=== PATIENT | female | born 1950 | race Caucasian/White ===

== ENCOUNTER → 2016-11-06 | Outpatient (CLI) | payer MEDICARE, OTHER | LOC: SUN.DIA 08:18 | DX: E11.65 Type 2 diabetes mellitus with hyperglycemia (principal); Z71.3 Dietary counseling and surveillance | CPT/HCPCS: G0108 ==

== ENCOUNTER → 2017-01-08 | Outpatient (CLI) | payer MEDICARE, OTHER | LOC: SUN.DIA 12-11 16:10 | DX: E11.65 Type 2 diabetes mellitus with hyperglycemia (principal); E66.9 Obesity, unspecified; Z68.31 Body mass index [BMI] 31.0-31.9, adult; Z71.3 Dietary counseling and surveillance ==

== ENCOUNTER → 2019-05-26 | Outpatient (CLI) | payer MEDICARE, OTHER ==
[~2019-05-26] MED LIST: ATIVAN 0.50.5 MG/TAB PO; CELEXA 20MG20 MG/TAB PO; LASIX 20MG TABL20 MG PO; PRILOSEC 20MG20 MG PO; RELAFEN 50500 MG/TAB PO; TENORMIN 2525 MG/TAB PO; TYLENOL W/COD1 UDTAB PO; ZANAFLEX CAPSULE2 MG PO; ZOCOR 20MG20 MG PO; ZOFRAN ODT4 MG PO
== END ==
LOC: MC.RAD 10:31
DX: Z12.31 Encounter for screening mammogram for malignant neoplasm of breast (principal)

== ENCOUNTER → 2020-01-24 | Outpatient (CLI) | payer MEDICARE, OTHER | LOC: ZLAB.KSTAT 07:12 | DX: R19.7 Diarrhea, unspecified (principal) ==

== ENCOUNTER 2020-01-27 13:30 | Inpatient (IN) | payer MEDICARE, OTHER ==
[~2020-01-27] VITALS: Ht 170.2 cm; Wt 94.8 kg
--- NOTE | 2020-01-27 16:10 | NUR ---
PATIENT CAME IN COMPLAINING OF DIARRHEA FOR THE PAST 10 DAYS.
[2020-01-27 16:43] LABS: HEMATOCRIT 37.3 % (37.0-47.0); MEAN CELL VOLUME 97 fl (80.0-100.0); MEAN CORPUSCULAR HEMOGLOBIN 31 pg (27.0-31.0); MEAN CORPUSCULAR HGB CONC 32 g/dl (33.0-37.0); MEAN PLATELET VOLUME 9.6 fl (7.4-10.4); PLATELET COUNT 217 K/mm3 (130-400); RED BLOOD COUNT 3.85 M/mm3 (4.10-5.30); REDCELL DISTRIBUTION WIDTH-CV 12.6 % (11.5-14.5)
[2020-01-27 16:53] LABS: ALBUMIN 4.1 gm/dL (3.5-5.0); C-REACTIVE PROTEIN 1.8 mg/dL (0.0-0.9); CALCIUM 9.2 mg/dL (8.4-10.2); CREATININE, serum 0.71 (0.52-1.25); MAGNESIUM 2.1 mg/dL (1.6-2.3); POTASSIUM 3.8 mmol/L (3.4-5.0); TOTAL PROTEIN 7.5 gm/dL (6.4-8.2)
[2020-01-27 17:10] LABS: BAND 1 % (0-10); LYMPHOCYTE 25 % (20.0-51.0); NEUTROPHILS 65 % (42.0-75.2)
[2020-01-27 17:11] LABS: PLATELET ESTIMATE NORMAL (NORMAL)
[2020-01-27 17:12] VITALS: BP 120/78; PULSE 56; TEMP 98.5
[2020-01-27 17:12] LABS: HYPOCHROMIA 1+
[2020-01-27 20:00] VITALS: BP 130/68; PULSE 59; TEMP 98.1
--- NOTE | 2020-01-27 20:21 | NUR ---
Patient is alert and oriented. complained of knee and wrist pain at 2/10. patient is independent in the room. call light close to patient. Mahendra Petty RN completed a covid swab on patient today 01/26.
[2020-01-28 00:50] VITALS: BP 118/48; PULSE 70; TEMP 98
[2020-01-28 05:44] VITALS: BP 131/88; PULSE 62; TEMP 98.3
--- NOTE | 2020-01-28 06:32 | NUR ---
SEE LAB RESULTS FOR NEGATIVE COVID 19 TEST RESULTS. PATIENT MOVED FROM ROOM 304 TO 356. AMBULATED WITH STAND BY ASSIST TO NEW ROOM. HAS HAD NO STOOLS THIS SHIFT. DENIES C/O ABD PAIN OR NAUSEA. NO VOMITING. GOOD ORAL INTAKE OF CLEAR LIQUIDS WITHOUT COMPLICATIONS. DOES REPORT MILD HEADACHE THAT WAS NOT RELEIVED BY TYLENOL. FVS WNL THROUGH THE NIGHT, SEE DOCUMENTATION.
[2020-01-28 07:41] VITALS: BP 135/70; PULSE 62; TEMP 98
--- NOTE | 2020-01-28 10:34 | NUR ---
Pt awake and alert upon entry, walking in the room, talkative and appropriate. shift assessments complete, left Pt call light in reach.
--- NOTE | 2020-01-28 11:01 | NUR ---
First visit from the buildings and grounds coordinator. prayed with patient. No other needs right now.
[2020-01-28 11:33] VITALS: BP 143/63; PULSE 70; TEMP 98.6
--- NOTE | 2020-01-28 12:45 | NUR ---
Character Actor met with patient to discuss discharge planning. Patient lives alone in [place] and sees Dr. Ornelas for primary care. Patient obtains medications from [facility] with no difficulties. Patient uses a CPAP that she obtained from [facility] and no other DME. Patient is independent with ADLS and plans to return home upon discharge. Patient reports her two children Didi (ph#[phone]) and Delmar (ph#[phone]) are her DPOA-HC. No additional needs at this time.
[2020-01-28 14:36] LABS: CLOSTRIDIUM DIFF A/B NEG; CLOSTRIDIUM DIFF A/B INTERP No C.diff present
[2020-01-28 16:08] VITALS: BP 135/70; PULSE 64; TEMP 97.8
[2020-01-28 19:06] VITALS: BP 132/65; PULSE 64; TEMP 98.5
--- NOTE | 2020-01-28 19:40 | NUR ---
Received report from David. Seen patient sitting on bed, eating her dinner. She denies any pain. With IV on right hand infusing NS at 75 ml/hr. Will continue to monitor.
--- NOTE | 2020-01-28 21:00 | NUR ---
Patient took a shower. This nurse asked if she had a bowel movement after her dinner and she said no.
[2020-01-29 00:10] VITALS: BP 132/55; PULSE 67; TEMP 98.3
[2020-01-29 04:14] VITALS: BP 145/67; PULSE 66; TEMP 98.6
--- NOTE | 2020-01-29 06:36 | NUR ---
Patient had an uneventful night. Denies any pain. She doesn't have any bowel movement the whole shift. Will endorse to day shift nurse.
[2020-01-29 07:20] LABS: BASO % 0.5 % (0.0-2.0); EOS # 0.2 (0.0-0.7); EOS % 4.7 % (0-4.0); GRAN # 2.3 (1.4-6.5); HEMOGLOBIN 11.5 g/dl (12.5-16.0); LYMPH % 25.3 % (20.0-51.0); MEAN CELL VOLUME 96 fl (80.0-100.0); MEAN CORPUSCULAR HEMOGLOBIN 32 pg (27.0-31.0); MEAN CORPUSCULAR HGB CONC 33 g/dl (33.0-37.0); MONO # 0.4 (0.1-0.6); MONO % 9.2 % (1.7-9.3); PLATELET COUNT 222 K/mm3 (130-400); RED BLOOD COUNT 3.62 M/mm3 (4.10-5.30); REDCELL DISTRIBUTION WIDTH-CV 12.6 % (11.5-14.5)
[2020-01-29 07:22] LABS: HEMATOCRIT 34.9 % (37.0-47.0)
[2020-01-29 07:33] LABS: CALCIUM 9.1 mg/dL (8.4-10.2); CREATININE, serum 0.71 (0.52-1.25); POTASSIUM 3.6 mmol/L (3.4-5.0)
[2020-01-29 07:45] VITALS: BP 124/91; PULSE 80; TEMP 98.3
[2020-01-29 07:51] VITALS: BP 100/71; PULSE 77; TEMP 98.4
--- NOTE | 2020-01-29 08:13 | NUR ---
Pt awake and alert this morning, talkative, no C/O pain at this time, shift assessments complete, left Pt call light in reach.
[2020-01-29] MEDS ORDERED: FLAGYL500 MG PO (10:26)
[2020-01-29] MEDS ORDERED: OMNICEF 300MG300 MG PO (10:26)
[2020-01-29 11:35] VITALS: BP 132/67; PULSE 62; TEMP 98.5
--- NOTE | 2020-01-29 13:30 | NUR ---
Pt discharged to home, discussed discharge packet with Pt, answered all questions. Escorted Pt to entrance, Pt left with family via private transportation.
== END 2020-01-29 13:30 | disposition home or self-care (01) | DRG 392 ==
LOC: PEDS 13:30 → MEDICAL 01-28 05:22
PROVIDERS: Physician Assistant; ADMIT Internal Medicine
DX: K57.32 Diverticulitis of large intestine without perforation or abscess without bleeding (principal); E78.5 Hyperlipidemia, unspecified; G47.33 Obstructive sleep apnea (adult) (pediatric); I10 Essential (primary) hypertension; K21.9 Gastro-esophageal reflux disease without esophagitis; E86.0 Dehydration; E66.9 Obesity, unspecified
CPT/HCPCS: 99222-AI; 99232-AI; 99239; J0696; J1644; J7030; Q9967

== ENCOUNTER 2021-03-25 09:39 | Observation (INO) | payer MEDICARE, OTHER ==
[~2021-03-25] VITALS: Ht 170.2 cm; Wt 88.6 kg
[~2021-03-25 09:39] MED LIST changes: +FLAGYL500 MG PO; +OMNICEF 300MG300 MG PO
[2021-03-25 10:23] LABS: BASO # 0.1 (0.0-0.2); BASO % 0.5 % (0.0-2.0); EOS # 0.1 (0.0-0.7); EOS % 0.8 % (0-4.0); GRAN # 8.6 (1.4-6.5); GRAN % 87.8 % (42.2-75.2); HEMOGLOBIN 12.1 g/dl (12.5-16.0); LYMPH # 0.4 (1.2-3.4); LYMPH % 3.8 % (20.0-51.0); MEAN CELL VOLUME 96 fl (80.0-100.0); MEAN CORPUSCULAR HEMOGLOBIN 31 pg (27.0-31.0); MEAN CORPUSCULAR HGB CONC 33 g/dl (33.0-37.0); MEAN PLATELET VOLUME 9.1 fl (7.4-10.4); MONO # 0.7 (0.1-0.6); MONO % 6.7 % (1.7-9.3); PLATELET COUNT 226 K/mm3 (130-400); RED BLOOD COUNT 3.85 M/mm3 (4.10-5.30); REDCELL DISTRIBUTION WIDTH-CV 13.3 % (11.5-14.5)
[2021-03-25 10:24] LABS: HEMATOCRIT 36.9 % (37.0-47.0)
[2021-03-25 10:31] LABS: BILIRUBIN,TOTAL 1.3 mg/dL (0.0-1.0); CALCIUM 9.7 mg/dL (8.4-10.2); CREATININE, serum 0.64 (0.52-1.25); POTASSIUM 4.4 mmol/L (3.4-5.0); TOTAL PROTEIN 7.4 gm/dL (6.4-8.2)
[2021-03-25 11:05] LABS: INR 1.1 (0.8-3.0); PROTHROMBIN TIME 11.8 SECONDS (9.7-12.8)
[2021-03-25 14:48] LABS: PH 6 (5-8); SQUAMOUS EPITHELIAL None Seen /hpf; URINE APPEARANCE Clear; URINE BACTERIA None Seen /hpf; URINE BILIRUBIN Negative (NEGATIVE); URINE BLOOD Negative (NEGATIVE); URINE COLOR Colorless; URINE GLUCOSE Negative (NEGATIVE); URINE KETONE Negative (NEGATIVE); URINE LEUKOCYTE ESTERASE Negative (NEGATIVE); URINE NITRATE Negative (NEGATIVE); URINE PROTEIN(semi-quant) Negative (NEGATIVE); URINE RBC 0-2 /hpf; URINE UROBILINOGEN Negative (NEGATIVE); URINE WBC 0-2 /hpf
[2021-03-25 15:04] LABS: COLLECTION METHOD CLEAN CATCH
[2021-03-25] MEDS ORDERED: MYRBETR50MG PO (18:01)
[2021-03-25] MEDS ORDERED: TENORMIN 2525 MG/TAB PO (18:01)
[2021-03-25] MEDS ORDERED: CRANBERRY500 M3 PO (18:02)
[2021-03-25] MEDS ORDERED: CHARCOAL (18:03)
[2021-03-25] MEDS ORDERED: VITAMINC1000TA (18:03)
[2021-03-25] MEDS ORDERED: CELEXA10 MG PO (18:05)
[2021-03-25] MEDS ORDERED: PROBIOTIC ACID1 EAC3 PO (18:06)
--- NOTE | 2021-03-25 18:08 | NUR ---
ASSESSMENT COMPLETED, PT AOX4, INDEPENDENT IN ROOM, NO SKIN ISSUES, DA ALVINA IN ROOM, ORIENTED TO CALL LIGHT AND REMOTE, PT PLEASANT, MED REC COMPLETED, DENIES SOB/CHEST PAIN. NO OTHER NEEDS
[2021-03-25 18:22] VITALS: BP 117/63; PULSE 64; TEMP 98.6
[2021-03-25 20:45] VITALS: BP 138/67; PULSE 67; TEMP 99
--- NOTE | 2021-03-25 23:00 | NUR ---
ALERT AND OX4. DENIES MARIA ISABEL, CHEST PAIN OR NAUSEA. CONT TO HAVE SOME BLOODY STOOLS, NURSE DID NOT SEE BUT PT DESCRIBES SMALL AMOUNT. ASKED TO LEAVE IN STOOL NEXT TIME SO I CAN SEE. DENIES LIGHTHEADED OR DIZZY. PM MEDS GIVEN. ZOSYN RUNNING. CALL LIGHT WI REACH. POC DISCUSSED.
[2021-03-25 23:45] VITALS: BP 132/54; PULSE 66; TEMP 98
[2021-03-26 04:10] VITALS: BP 141/73; PULSE 69; TEMP 98.5
--- NOTE | 2021-03-26 04:51 | NUR ---
RESTED THROUGH THE NIGHT WITHOUT INCIDENT. NEEDS MET.
[2021-03-26 06:56] LABS: BASO % 0.3 % (0.0-2.0); EOS # 0.2 (0.0-0.7); EOS % 2.8 % (0-4.0); GRAN # 4.3 (1.4-6.5); GRAN % 74.1 % (42.2-75.2); HEMOGLOBIN 11.3 g/dl (12.5-16.0); LYMPH # 0.7 (1.2-3.4); LYMPH % 12.8 % (20.0-51.0); MEAN CELL VOLUME 99 fl (80.0-100.0); MEAN CORPUSCULAR HEMOGLOBIN 31 pg (27.0-31.0); MEAN CORPUSCULAR HGB CONC 32 g/dl (33.0-37.0); MEAN PLATELET VOLUME 9.5 fl (7.4-10.4); MONO # 0.6 (0.1-0.6); MONO % 9.7 % (1.7-9.3); PLATELET COUNT 203 K/mm3 (130-400); RED BLOOD COUNT 3.62 M/mm3 (4.10-5.30); REDCELL DISTRIBUTION WIDTH-CV 13.7 % (11.5-14.5)
[2021-03-26 07:07] LABS: HEMATOCRIT 35.7 % (37.0-47.0)
[2021-03-26 07:09] LABS: ALBUMIN 3.6 gm/dL (3.5-5.0); BILIRUBIN,TOTAL 0.9 mg/dL (0.0-1.0); CALCIUM 9.3 mg/dL (8.4-10.2); CREATININE, serum 0.64 (0.52-1.25); POTASSIUM 3.8 mmol/L (3.4-5.0); TOTAL PROTEIN 6.9 gm/dL (6.4-8.2)
[2021-03-26 08:00] VITALS: BP 148/67; PULSE 69; TEMP 97.8
--- NOTE | 2021-03-26 10:44 | NUR ---
Keegan met with the pt who stated her preference to return home once medically stable. The pt lives at home alone in [place]. The pt is independent on all ADLs but does use a walker in the morning, CPAP, Glucometer. The pt had back surgery on March 01 and is currently using [facility] 2x week for pt/ot. The Nk is Lulu, marcos (ph#[phone] or son,Delmar (ph# [phone]). Daughter is the person to call. The PCP is Dr. Ornelas and gets her medication from [facility] and has no trouble obtaining cost. The Pt does have a DPOA-HC. No other needs stated at this time. Keegan to await further recommendations and follow up as needed. D/c : Home.
[2021-03-26 12:00] VITALS: BP 135/84; PULSE 71; TEMP 97.6
[2021-03-26 16:00] VITALS: BP 143/70; PULSE 79; TEMP 98
--- NOTE | 2021-03-26 18:13 | NUR ---
0700 PT RECEIVED RESTING IN BED. AAOX3. PT VOICE NO CONCERNS. PT DENEIS PAIN. COMFORT MEASURES IN PLACE. CALL-LIGHT IN REACH. BED IN LOW POSITION. WILL CONTINUE TO MONITOR. ISOLATION PRECAUTION MAINTAINED. 0900 PT ATE HER MEAL. MEDICATIONS ADMINISTERED ORDERED. WILL CONTINUE TO MONITOR. 1200 PT ATE HER MEAL. MEDICATIONS ADMINISTERED ORDERED. PT HAS NO COMPLAINTS AT THIS TIME WILL CONTINUE TO MONITOR. 1700 PT COMPLAINED OF PAIN AND RECEIVED PAIN MEDICATION AND MEDICATION WAS EFFECTIVE. PT ATE HER MEAL. NO CONCERNS AT THIS TIME COMFORT MEASURES IN PLACE. CALL-LIGHT IN REACH. WILL CONTINUE TO MONITOR.
--- NOTE | 2021-03-26 18:36 | NUR ---
0700 PT RECEIVED RESTING IN BED WATCHING TV. NO S/S OF DISTRESS NOTICED. PT DENIES PAIN. COMFORT MEASURES IN PLACE. BED IN LOW POSITION. CALL-LIGHT IN REACH. WILL CONTINUE TO MONITOR. 0900 PT HAD A CLEAR LIQUID TRAY FOR BREAKFAST. PT HAD NO EPISODE OF DIARRHEA OR BLOODY STOOL. MEDICATIONS ADMINISTERED ORDERED. WILL CONTINUE TO MONITOR. 1200 PT DIET CHANGED TO REGULAR AND TOLERATED. WILL CONTINUE TO MONIOTR. 1700 PT DAUGHTER AT THE BEDSIDE. PT HAD A SHOWER. PT HAS NO CONCERNS AT THIS TIME.
--- NOTE | 2021-03-26 18:45 | NUR ---
PT IS LAYING IN BED AT THIS TIME. ABX ARE STILL RUNNING. PT DENIES ANY NEEDS AT THIS TIME.
--- NOTE | 2021-03-26 19:50 | NUR ---
PT'S ABX COMPLETED. ASSESSMENT COMPLETED. PT IS LAYING IN BED, DENIES ANY NEEDS. PT STATES SHE HAS NOT HAD ANY BLOODY STOOLS. NO CONCERNS.
[2021-03-26 20:13] VITALS: BP 133/64; PULSE 78; TEMP 97.6
[2021-03-26 22:58] VITALS: BP 136/65; PULSE 66; TEMP 97.9
[2021-03-27 04:09] VITALS: BP 135/70; PULSE 64; TEMP 97.9
[2021-03-27 07:18] LABS: BASO % 0.9 % (0.0-2.0); EOS # 0.3 (0.0-0.7); EOS % 5.7 % (0-4.0); GRAN # 2.7 (1.4-6.5); GRAN % 61.2 % (42.2-75.2); HEMATOCRIT 37.9 % (37.0-47.0); HEMOGLOBIN 12.2 g/dl (12.5-16.0); LYMPH % 22.9 % (20.0-51.0); MEAN CELL VOLUME 96 fl (80.0-100.0); MEAN CORPUSCULAR HEMOGLOBIN 31 pg (27.0-31.0); MEAN CORPUSCULAR HGB CONC 32 g/dl (33.0-37.0); MEAN PLATELET VOLUME 9.2 fl (7.4-10.4); MONO # 0.4 (0.1-0.6); MONO % 9.1 % (1.7-9.3); PLATELET COUNT 240 K/mm3 (130-400); RED BLOOD COUNT 3.94 M/mm3 (4.10-5.30); REDCELL DISTRIBUTION WIDTH-CV 13.4 % (11.5-14.5)
[2021-03-27 07:31] LABS: CALCIUM 9.6 mg/dL (8.4-10.2); CREATININE, serum 0.68 (0.52-1.25); POTASSIUM 4.1 mmol/L (3.4-5.0)
[2021-03-27 07:41] VITALS: BP 140/69; PULSE 60; TEMP 98.3
--- NOTE | 2021-03-27 08:13 | NUR ---
Patient laying in bed upon entering the room. She is very cheerful and pleasant this morning, and hopeful that she will be going home today. Patient stated she was just waiting to have a bowel movement, "preferably one without blood". Assessment was completed and morning medications were administered. Patient had no complaints or concerns at this time.
[2021-03-27] MEDS ORDERED: AMOXICILLIN 8751 TAB PO (09:55)
--- NOTE | 2021-03-27 10:38 | NUR ---
The patient is to tentatively d/c today. DODIE followed up with the patient. The patient plans to return home upon discharge and resume services from [facility]. DODIE confirmed services and faxed updates to Bethanie at [facility].
--- NOTE | 2021-03-27 11:35 | NUR ---
The patient is to discharge back home today, 03/27, with home health services for assisted/PT/OT from [facility]. SW notified and faxed d/c orders to Bethanie at [facility]. No additional needs at this time.
[2021-03-27 11:47] VITALS: BP 114/53; BP 138/70; PULSE 60; PULSE 62; TEMP 98; TEMP 98.5
--- NOTE | 2021-03-27 12:36 | NUR ---
Initial visit; Patient thanked Shampoo Assistant for looking in on her, visiting and offering prayer and God's blessings. Patient was delightful and a blessing to visit. +-
== END 2021-03-27 12:35 | disposition home or self-care (01) ==
LOC: COL.ER 09:39 → MEDICAL 14:16
PROVIDERS: Nurse Practitioner Primary Care; Student in an Organized Health Care Education/Training Program
DX: K57.92 Diverticulitis of intestine, part unspecified, without perforation or abscess without bleeding (principal); K92.1 Melena; I10 Essential (primary) hypertension; E78.5 Hyperlipidemia, unspecified; K21.9 Gastro-esophageal reflux disease without esophagitis; R73.03 Prediabetes; M54.9 Dorsalgia, unspecified; Z79.1 Long term (current) use of non-steroidal anti-inflammatories (NSAID); Z79.899 Other long term (current) drug therapy
CPT/HCPCS: 99239; G0378; J0744; J2270; J2543; J7030; Q9967

== ENCOUNTER → 2021-06-15 | Outpatient (CLI) | payer MEDICARE, OTHER ==
[~2021-06-15] MED LIST changes: +AMOXICILLIN 8751 TAB PO; +CELEXA10 MG PO; +CHARCOAL; +CRANBERRY500 M3 PO; +MYRBETR50MG PO; +PROBIOTIC ACID1 EAC3 PO; +VITAMINC1000TA
[2021-06-15 21:27] LABS: COLLECTION METHOD CLEAN CATCH
[2021-06-15 21:32] LABS: PH 5 (5-8); URINE APPEARANCE Hazy; URINE BACTERIA None Seen /hpf; URINE BILIRUBIN Negative (NEGATIVE); URINE BLOOD Negative (NEGATIVE); URINE COLOR Yellow; URINE GLUCOSE Negative (NEGATIVE); URINE KETONE Negative (NEGATIVE); URINE LEUKOCYTE ESTERASE Negative (NEGATIVE); URINE NITRATE Negative (NEGATIVE); URINE PROTEIN(semi-quant) Negative (NEGATIVE); URINE RBC 0-2 /hpf; URINE UROBILINOGEN Negative (NEGATIVE)
== END ==
LOC: ZCOL.LAB 20:53
PROVIDERS: Internal Medicine
DX: N39.0 Urinary tract infection, site not specified (principal); R41.0 Disorientation, unspecified

== ENCOUNTER → 2021-07-31 | Outpatient (CLI) | payer MEDICARE, OTHER | LOC: COL.RAD 13:00 | DX: I61.2 Nontraumatic intracerebral hemorrhage in hemisphere, unspecified (principal) | CPT/HCPCS: Q9967 ==

== ENCOUNTER 2021-09-27 13:15 | Emergency (ER) | payer MEDICARE, OTHER ==
[~2021-09-27] VITALS: Ht 172.7 cm; Wt 100.0 kg
[2021-09-27 13:15] VITALS: TEMP 97.6
[2021-09-27 13:35] LABS: BASO % 0.4 % (0.0-2.0); EOS # 0.1 K/mm3 (0.0-0.7); EOS % 1.6 % (0.0-4.0); GRAN # 4.5 K/mm3 (1.4-6.5); GRAN % 65.1 % (42.2-75.2); HEMATOCRIT 38.9 % (37.0-47.0); HEMOGLOBIN 12.4 g/dl (12.5-16.0); LYMPH # 1.7 K/mm3 (1.2-3.4); LYMPH % 24.4 % (20.0-51.0); MEAN CELL VOLUME 96 fl (80.0-100.0); MEAN CORPUSCULAR HEMOGLOBIN 31 pg (27-31); MEAN CORPUSCULAR HGB CONC 32 g/dl (33.0-37.0); MONO # 0.6 K/mm3 (0.1-0.6); MONO % 8.2 % (1.7-9.3); PLATELET COUNT 308 K/mm3 (130-400); RED BLOOD COUNT 4.04 M/mm3 (4.10-5.30)
[2021-09-27 13:44] LABS: PROTHROMBIN TIME 11.3 SECONDS (9.7-12.8)
[2021-09-27 13:46] LABS: PARTIAL THROMBOPLASTIN TIME 32.7 SECONDS (26.0-37.0)
[2021-09-27 13:54] LABS: ALANINE AMINOTRANSFERASE 18 U/L (0-55); ALBUMIN 3.6 gm/dL (3.4-4.8); ALKALINE PHOSPHATASE 72 U/L (40-150); ANION GAP 16 mmol/L (7-16); AST,SGOT 19 U/L (5-34); BILIRUBIN,TOTAL 0.6 mg/dL (0.2-1.2); BLOOD UREA NITROGEN 9 mg/dL (10-20); CALCIUM 9.1 mg/dL (8.4-10.2); CARBON DIOXIDE 20 mmol/L (23-31); CHLORIDE 103 mmol/L (98-107); CREATININE, serum 0.79 mg/dL (0.57-1.11); GLUCOSE 137 mg/dL (70-99); POTASSIUM 3.7 mmol/L (3.5-4.5); SODIUM 139 mmol/L (136-145); TOTAL PROTEIN 7.2 gm/dL (6.2-8.1)
[2021-09-27 13:55] LABS: ALCOHOL(ethanol),MEDICAL < 10 mg/dL (0-10)
[2021-09-27 13:59] LABS: TROPONIN-I < 0.010 ng/mL (0.00-0.033)
[2021-09-27 14:02] LABS: COLLECTION METHOD CATHETER
[2021-09-27 14:18] LABS: MUCOUS Present (NOT PRESENT); PH 6 (5-8); SQUAMOUS EPITHELIAL 0-2 /hpf (0-10); URINE APPEARANCE Hazy (CLEAR/HAZY); URINE BACTERIA Rare /hpf (NONE SEEN); URINE BILIRUBIN Negative (NEGATIVE); URINE BLOOD Negative (NEGATIVE); URINE COLOR Yellow (YELLOW); URINE GLUCOSE Negative (NEGATIVE); URINE KETONE Negative (NEGATIVE); URINE LEUKOCYTE ESTERASE 3+ (NEGATIVE); URINE NITRATE Negative (NEGATIVE); URINE PROTEIN(semi-quant) Negative (NEGATIVE); URINE UROBILINOGEN Negative (NEGATIVE)
[2021-09-27 14:21] LABS: TRICYCLIC ANTIDEPRESS URINE NEGATIVE
[2021-09-27] MEDS ORDERED: CEPHALEXIN500 M1 PO (15:46)
[2021-09-27] MEDS ORDERED: KEPPRA 500MG500 MG PO (15:46)
[2021-09-27 16:58] VITALS: BP 130/82; PULSE 86
== END 2021-09-27 16:58 | disposition home or self-care (01) ==
LOC: COL.ER 13:15
PROVIDERS: Emergency Medicine
DX: N39.0 Urinary tract infection, site not specified (principal); I10 Essential (primary) hypertension; E78.5 Hyperlipidemia, unspecified; K21.9 Gastro-esophageal reflux disease without esophagitis; Z20.822 Contact with and (suspected) exposure to COVID-19; Z79.899 Other long term (current) drug therapy
CPT/HCPCS: J0696; J1953; J2405; Q9967

== ENCOUNTER 2021-11-05 08:13 | Emergency (ER) | payer MEDICARE, OTHER ==
[~2021-11-05] VITALS: Ht 172.7 cm; Wt 90.9 kg
[~2021-11-05 08:13] MED LIST changes: +CEPHALEXIN500 M1 PO; +KEPPRA 500MG500 MG PO
[2021-11-05 08:19] VITALS: TEMP 98.5
[2021-11-05 08:53] LABS: BASO % 0.2 % (0.0-2.0); EOS # 0.1 K/mm3 (0.0-0.7); EOS % 1.8 % (0.0-4.0); GRAN # 3.9 K/mm3 (1.4-6.5); GRAN % 71.5 % (42.2-75.2); HEMATOCRIT 39.5 % (37.0-47.0); HEMOGLOBIN 12.8 g/dl (12.5-16.0); MEAN CELL VOLUME 96 fl (80.0-100.0); MEAN CORPUSCULAR HEMOGLOBIN 31 pg (27-31); MEAN CORPUSCULAR HGB CONC 32 g/dl (33.0-37.0); MEAN PLATELET VOLUME 8.8 fl (7.4-10.4); MONO # 0.4 K/mm3 (0.1-0.6); MONO % 8.1 % (1.7-9.3); PLATELET COUNT 281 K/mm3 (130-400); RED BLOOD COUNT 4.12 M/mm3 (4.10-5.30); REDCELL DISTRIBUTION WIDTH-CV 13.2 % (11.5-14.5)
[2021-11-05 08:59] LABS: COLLECTION METHOD IN
[2021-11-05 09:07] LABS: MUCOUS Present (NOT PRESENT); PH 5 (5-8); URINE APPEARANCE Cloudy (CLEAR/HAZY); URINE BACTERIA Moderate /hpf (NONE SEEN); URINE BILIRUBIN Negative (NEGATIVE); URINE BLOOD 1+ (NEGATIVE); URINE COLOR Yellow (YELLOW); URINE GLUCOSE Negative (NEGATIVE); URINE KETONE Negative (NEGATIVE); URINE LEUKOCYTE ESTERASE 3+ (NEGATIVE); URINE NITRATE Negative (NEGATIVE); URINE PROTEIN(semi-quant) Negative (NEGATIVE); URINE UROBILINOGEN Negative (NEGATIVE)
[2021-11-05 09:09] LABS: ALANINE AMINOTRANSFERASE 17 U/L (0-55); ALBUMIN 3.8 gm/dL (3.4-4.8); ALKALINE PHOSPHATASE 82 U/L (40-150); ANION GAP 9 mmol/L (7-16); AST,SGOT 15 U/L (5-34); BLOOD UREA NITROGEN 12 mg/dL (10-20); CALCIUM 10.2 mg/dL (8.4-10.2); CARBON DIOXIDE 29 mmol/L (23-31); CHLORIDE 99 mmol/L (98-107); CREATININE, serum 0.75 mg/dL (0.57-1.11); GLUCOSE 137 mg/dL (70-99); POTASSIUM 4.5 mmol/L (3.5-4.5); SODIUM 137 mmol/L (136-145); TOTAL PROTEIN 7.3 gm/dL (6.2-8.1)
[2021-11-05 09:15] LABS: TROPONIN-I < 0.010 ng/mL (0.00-0.033)
[2021-11-05] MEDS ORDERED: DOXYCYCLINE 10100 MG PO (10:18)
[2021-11-05 11:05] VITALS: BP 145/71; PULSE 66
[2021-11-06] MEDS ORDERED: OMNICEF 300MG300 MG PO (14:05)
== END 2021-11-05 11:05 | disposition home or self-care (01) ==
LOC: COL.ER 08:13
PROVIDERS: Student in an Organized Health Care Education/Training Program
DX: R41.82 Altered mental status, unspecified (principal)

== ENCOUNTER → 2021-11-22 | Outpatient (CLI) | payer MEDICARE, OTHER ==
[~2021-11-22] MED LIST changes: +DOXYCYCLINE 10100 MG PO
== END ==
LOC: COL.RAD 12:22
DX: I61.1 Nontraumatic intracerebral hemorrhage in hemisphere, cortical (principal); G31.9 Degenerative disease of nervous system, unspecified; I67.82 Cerebral ischemia

== ENCOUNTER → 2022-04-05 | Outpatient (CLI) | payer MEDICARE, OTHER ==
[~2022-04-05] MED LIST changes: +LEVAQUIN 2250 MG/TAB PO
[2022-04-05 16:43] LABS: COLLECTION METHOD CATHETER
[2022-04-05 17:02] LABS: MUCOUS Present (NOT PRESENT); PH 8 (5-8); SQUAMOUS EPITHELIAL 0-2 /hpf (0-10); URINE APPEARANCE Hazy (CLEAR/HAZY); URINE BACTERIA None Seen /hpf (NONE SEEN); URINE BLOOD Negative (NEGATIVE); URINE COLOR Yellow (YELLOW); URINE GLUCOSE Negative (NEGATIVE); URINE KETONE Negative (NEGATIVE); URINE NITRATE Negative (NEGATIVE); URINE PROTEIN(semi-quant) Negative (NEGATIVE); URINE UROBILINOGEN Negative (NEGATIVE)
== END ==
LOC: ZCOL.LAB 16:24
PROVIDERS: Nurse Practitioner
DX: R30.0 Dysuria (principal); R41.82 Altered mental status, unspecified; Z87.440 Personal history of urinary (tract) infections

== ENCOUNTER 2022-04-19 14:13 | Emergency (ER) | payer MEDICARE, OTHER ==
[~2022-04-19] VITALS: Ht 170.2 cm; Wt 86.4 kg
[~2022-04-19 14:13] MED LIST changes: -LEVAQUIN 2250 MG/TAB PO
[2022-04-19 14:15] VITALS: TEMP 98.7
[2022-04-19 15:17] LABS: BASO % 0.2 % (0.0-2.0); EOS # 0.1 K/mm3 (0.0-0.7); EOS % 1.4 % (0.0-4.0); GRAN % 74.6 % (42.2-75.2); HEMATOCRIT 38.1 % (37.0-47.0); HEMOGLOBIN 12.6 g/dl (12.5-16.0); LYMPH # 1.2 K/mm3 (1.2-3.4); LYMPH % 13.1 % (20.0-51.0); MEAN CELL VOLUME 96 fl (80.0-100.0); MEAN CORPUSCULAR HEMOGLOBIN 32 pg (27-31); MEAN CORPUSCULAR HGB CONC 33 g/dl (33.0-37.0); MEAN PLATELET VOLUME 8.6 fl (7.4-10.4); MONO % 10.4 % (1.7-9.3); PLATELET COUNT 297 K/mm3 (130-400); RED BLOOD COUNT 3.96 M/mm3 (4.10-5.30); REDCELL DISTRIBUTION WIDTH-CV 13.1 % (11.5-14.5)
[2022-04-19 15:35] LABS: URINE APPEARANCE Clear (CLEAR/HAZY); URINE COLOR Yellow (YELLOW); URINE GLUCOSE Negative (NEGATIVE); URINE KETONE Negative (NEGATIVE); URINE PROTEIN(semi-quant) Negative (NEGATIVE)
[2022-04-19 15:35] LABS: ALBUMIN 3.6 gm/dL (3.4-4.8); BILIRUBIN,TOTAL 0.9 mg/dL (0.2-1.2); C-REACTIVE PROTEIN 2.8 mg/dL (0.00-0.50); CALCIUM 9.5 mg/dL (8.4-10.2); CREATININE, serum 0.75 mg/dL (0.57-1.11); POTASSIUM 4.8 mmol/L (3.5-4.5); TOTAL PROTEIN 7.2 gm/dL (6.2-8.1)
[2022-04-19 15:36] LABS: URINE BLOOD TRACE-INTACT (NEGATIVE); URINE NITRATE Positive (NEGATIVE); URINE UROBILINOGEN 0.2 E.U/dL (0.2-1.0)
[2022-04-19 15:46] LABS: BUDDING YEAST Present (NOT PRESENT); SQUAMOUS EPITHELIAL 0-2 /hpf (0-10); URINE BACTERIA None Seen /hpf (NONE SEEN)
[2022-04-19 16:51] VITALS: BP 134/88; PULSE 63
[2022-04-21 10:18] LABS: COLLECTION METHOD CATHETER
[2022-04-21] MEDS ORDERED: LEVAQUIN 2250 MG/TAB PO (11:01)
== END 2022-04-19 16:56 | disposition home or self-care (01) ==
LOC: COL.ER 14:13
PROVIDERS: Family Medicine
DX: N39.0 Urinary tract infection, site not specified (principal); R55 Syncope and collapse; R41.82 Altered mental status, unspecified
CPT/HCPCS: J0696; J7120

== ENCOUNTER → 2022-05-01 | Outpatient (CLI) | payer MEDICARE, OTHER ==
[~2022-05-01] MED LIST changes: +LEVAQUIN 2250 MG/TAB PO
== END ==
LOC: MC.RAD 10:51
DX: Z12.31 Encounter for screening mammogram for malignant neoplasm of breast (principal)

== ENCOUNTER 2022-06-01 18:00 | Emergency (ER) | payer MEDICARE, OTHER ==
[~2022-06-01] VITALS: Ht 170.2 cm; Wt 90.9 kg
[2022-06-01 18:02] VITALS: TEMP 97.7
[2022-06-01 19:03] LABS: BASO # 0.1 K/mm3 (0.0-0.2); BASO % 0.6 % (0.0-2.0); EOS # 0.2 K/mm3 (0.0-0.7); EOS % 1.3 % (0.0-4.0); GRAN # 9.5 K/mm3 (1.4-6.5); GRAN % 80.4 % (42.2-75.2); HEMATOCRIT 40.7 % (37.0-47.0); HEMOGLOBIN 13.4 g/dl (12.5-16.0); LYMPH # 1.3 K/mm3 (1.2-3.4); LYMPH % 11.1 % (20.0-51.0); MEAN CELL VOLUME 99 fl (80.0-100.0); MEAN CORPUSCULAR HEMOGLOBIN 32 pg (27-31); MEAN CORPUSCULAR HGB CONC 33 g/dl (33.0-37.0); MEAN PLATELET VOLUME 9.3 fl (7.4-10.4); MONO # 0.8 K/mm3 (0.1-0.6); MONO % 6.3 % (1.7-9.3); PLATELET COUNT 313 K/mm3 (130-400); RED BLOOD COUNT 4.13 M/mm3 (4.10-5.30); REDCELL DISTRIBUTION WIDTH-CV 13.2 % (11.5-14.5)
[2022-06-01 19:42] LABS: ALBUMIN 3.6 gm/dL (3.4-4.8); BILIRUBIN,TOTAL 0.7 mg/dL (0.2-1.2); CALCIUM 9.1 mg/dL (8.4-10.2); CREATININE, serum 0.77 mg/dL (0.57-1.11); POTASSIUM 4.3 mmol/L (3.5-4.5)
[2022-06-01 20:55] LABS: COLLECTION METHOD CATHETER
[2022-06-01 21:01] LABS: URINE APPEARANCE Cloudy (CLEAR/HAZY); URINE COLOR Yellow (YELLOW)
[2022-06-01 21:02] LABS: URINE BLOOD TRACE-INTACT (NEGATIVE); URINE GLUCOSE Negative (NEGATIVE); URINE KETONE Negative (NEGATIVE); URINE NITRATE Positive (NEGATIVE); URINE PROTEIN(semi-quant) Negative (NEGATIVE); URINE UROBILINOGEN 0.2 E.U/dL (0.2-1.0)
[2022-06-01 21:13] LABS: MUCOUS Present (NOT PRESENT); SQUAMOUS EPITHELIAL 0-2 /hpf (0-10); URINE BACTERIA None Seen /hpf (NONE SEEN)
[2022-06-01] MEDS ORDERED: FLAGYL500 MG PO (21:41)
[2022-06-01] MEDS ORDERED: CIPRO 500MG TA500 MG PO (21:41)
[2022-06-01] MEDS ORDERED: SEPTRA DS 8001 TAB PO (21:46)
[2022-06-01 22:30] VITALS: BP 154/78; PULSE 79
== END 2022-06-01 22:40 | disposition home or self-care (01) ==
LOC: COL.ER 18:00
PROVIDERS: Emergency Medicine
DX: K52.9 Noninfective gastroenteritis and colitis, unspecified (principal); N30.00 Acute cystitis without hematuria; G40.909 Epilepsy, unspecified, not intractable, without status epilepticus
CPT/HCPCS: J3010; J7120; Q9967

== ENCOUNTER → 2022-07-10 | Outpatient (CLI) | payer MEDICARE, OTHER ==
[~2022-07-10] MED LIST changes: +CIPRO 500MG TA500 MG PO; +SEPTRA DS 8001 TAB PO
== END ==
LOC: COL.VAS 08:40
DX: I73.9 Peripheral vascular disease, unspecified (principal)

== ENCOUNTER → 2022-12-13 | Outpatient (REF) | payer MEDICARE, OTHER ==
[~2022-12-13] MED LIST changes: +ALLEGRA 180MG180 MG PO; +ASPERCREME LID113 GM TP; +ASPERCREME85G TP; +CELEXA40 MG PO; +COLACE 100100 MG/CAP PO; +DEBROX OT; +FLONASEALLERGY NAS; +GENTLE LAXATIVE10 MG RC; +GLUCOPHAGE500 MG/TAB PO; +GOOD NEIGH1200 MG/15; +IMODIUM 2MG CAPS2 MG PO; +LAMICTAL 100MG100 MG PO; +LIDODERM 5% PATC1 EA TP; +LIPITOR 10MG10 MG PO; +MACROBID 1100 MG/CAP PO; +MACRODANTIN50 MG/CA1 PO; +MAXIPIME1 GM IV; +MELATONIN ER10 MG PO; +MERREM VIA500 MG/VIA IV; +MILK OF MA400 MG/52 PO; +MIRALAX PA17 GM/Dose PO; +MYLANTA 150 ML150 M1 PO; +NEURONTIN100 MG/CAP PO; +NEURONTIN300 MG/CAP PO; +NYSTATIN100000 U/1 TOP; +PREMARIN 0.60.625 M1 PO; +PROTONIX 40MG T40 MG PO; +ROXICODONE 55 MG/TAB PO; +RYTARY1 CE2 PO; +TESSALON P100 MG/CAP PO; +TYLENOL 325MG325 MG; +TYLENOL 325MG325 MG PO; +TYLENOL SU650 MG/SUP RC; +ZESTRIL 10MG10 MG PO; +ZOFRAN 4MG T4 MG/TAB PO
[2022-12-13 13:57] LABS: COLLECTION METHOD CATHETER
[2022-12-13 14:13] LABS: URINE APPEARANCE Cloudy (CLEAR/HAZY); URINE COLOR Yellow (YELLOW)
[2022-12-13 14:14] LABS: URINE BLOOD 1+ (NEGATIVE); URINE NITRATE Positive (NEGATIVE)
[2022-12-13 14:15] LABS: URINE GLUCOSE Negative (NEGATIVE); URINE KETONE Negative (NEGATIVE); URINE PROTEIN(semi-quant) Negative (NEGATIVE); URINE UROBILINOGEN 0.2 E.U/dL (0.2-1.0)
[2022-12-13 14:17] LABS: AMORPHOUS CRYSTAL Present (NOT PRESENT); MUCOUS Present (NOT PRESENT); SQUAMOUS EPITHELIAL 0-2 /hpf (0-10); URINE BACTERIA Rare /hpf (NONE SEEN)
== END ==
LOC: ZCOL.LAB 13:03
PROVIDERS: Internal Medicine
DX: N39.0 Urinary tract infection, site not specified (principal)

== ENCOUNTER → 2022-12-14 | Outpatient (REF) | payer MEDICARE, OTHER ==
[2022-12-14 16:41] LABS: BASO % 0.3 % (0.0-2.0); EOS # 0.2 K/mm3 (0.0-0.7); EOS % 3.4 % (0.0-4.0); GRAN # 5.3 K/mm3 (1.4-6.5); GRAN % 74.7 % (42.2-75.2); HEMOGLOBIN 12.8 g/dl (12.5-16.0); LYMPH % 13.8 % (20.0-51.0); MEAN CELL VOLUME 98 fl (80.0-100.0); MEAN CORPUSCULAR HEMOGLOBIN 31 pg (27-31); MEAN CORPUSCULAR HGB CONC 32 g/dl (33.0-37.0); MEAN PLATELET VOLUME 9.5 fl (7.4-10.4); MONO # 0.5 K/mm3 (0.1-0.6); MONO % 7.4 % (1.7-9.3); PLATELET COUNT 291 K/mm3 (130-400); RED BLOOD COUNT 4.07 M/mm3 (4.10-5.30); REDCELL DISTRIBUTION WIDTH-CV 13.8 % (11.5-14.5)
== END ==
LOC: ZCOL.LAB 16:23
PROVIDERS: Internal Medicine
DX: D64.9 Anemia, unspecified (principal)

== ENCOUNTER → 2023-01-04 | Outpatient (REF) | payer MEDICARE, OTHER ==
[2023-01-04 18:45] LABS: COLLECTION METHOD CLEAN CATCH
[2023-01-04 19:20] LABS: URINE APPEARANCE Cloudy (CLEAR/HAZY); URINE COLOR Yellow (YELLOW)
[2023-01-04 19:21] LABS: PH 6.5 (5.0-8.5); URINE BLOOD 1+ (NEGATIVE); URINE GLUCOSE Negative (NEGATIVE); URINE KETONE Negative (NEGATIVE); URINE NITRATE Positive (NEGATIVE); URINE PROTEIN(semi-quant) Negative (NEGATIVE); URINE UROBILINOGEN 0.2 E.U/dL (0.2-1.0)
[2023-01-04 20:02] LABS: SQUAMOUS EPITHELIAL 0-2 /hpf (0-10); URINE BACTERIA Rare /hpf (NONE SEEN); URINE RBC 0-2 /hpf (0-2)
== END ==
LOC: ZCOL.LAB 16:25
PROVIDERS: Student in an Organized Health Care Education/Training Program
DX: Z87.440 Personal history of urinary (tract) infections (principal)

== ENCOUNTER → 2023-02-05 | Outpatient (REF) | payer MEDICARE, OTHER | LOC: ZCOL.LAB 15:51 | DX: M79.2 Neuralgia and neuritis, unspecified (principal) ==

== ENCOUNTER → 2023-07-11 | Outpatient (CLI) | payer MEDICARE, OTHER ==
[2023-07-11 14:56] LABS: CALCIUM 9.1 mg/dL (8.4-10.2); CREATININE, serum 0.71 mg/dL (0.57-1.11); POTASSIUM 4.4 mmol/L (3.5-4.5)
== END ==
LOC: ZCOL.LAB 14:32
PROVIDERS: Internal Medicine
DX: I10 Essential (primary) hypertension (principal)

== ENCOUNTER → 2023-09-24 | Outpatient (REF) | payer MEDICARE, OTHER ==
[2023-09-24 12:15] LABS: BASO % 0.5 % (0.0-2.0); EOS # 0.1 K/mm3 (0.0-0.7); EOS % 2.4 % (0.0-4.0); GRAN # 4.2 K/mm3 (1.4-6.5); GRAN % 70.8 % (42.2-75.2); HEMATOCRIT 38.2 % (37.0-47.0); HEMOGLOBIN 12.5 g/dl (12.5-16.0); LYMPH % 16.2 % (20.0-51.0); MEAN CELL VOLUME 97 fl (80.0-100.0); MEAN CORPUSCULAR HEMOGLOBIN 32 pg (27-31); MEAN CORPUSCULAR HGB CONC 33 g/dl (33.0-37.0); MEAN PLATELET VOLUME 9.5 fl (7.4-10.4); MONO # 0.6 K/mm3 (0.1-0.6); MONO % 9.4 % (1.7-9.3); PLATELET COUNT 260 K/mm3 (130-400); RED BLOOD COUNT 3.92 M/mm3 (4.10-5.30); REDCELL DISTRIBUTION WIDTH-CV 12.9 % (11.5-14.5)
== END ==
LOC: ZCOL.LAB 11:45
PROVIDERS: Internal Medicine
DX: D64.9 Anemia, unspecified (principal)

== ENCOUNTER → 2024-01-02 | Outpatient (REF) | payer MEDICARE, OTHER | LOC: ZCOL.LAB 10:49 | DX: G93.89 Other specified disorders of brain (principal); G40.909 Epilepsy, unspecified, not intractable, without status epilepticus ==

== ENCOUNTER → 2024-03-05 | Outpatient (CLI) | payer MEDICARE, OTHER ==
[2024-03-05 11:59] LABS: ALANINE AMINOTRANSFERASE < 6 U/L (0-55); ALBUMIN 3.6 g/dL (3.4-4.8); ALKALINE PHOSPHATASE 88 U/L (40-150); ANION GAP 12 mmol/L (7-16); AST,SGOT 6 U/L (5-34); BILIRUBIN,TOTAL 0.6 mg/dL (0.2-1.2); BLOOD UREA NITROGEN 9 mg/dL (10-20); CALCIUM 9.5 mg/dL (8.4-10.2); CHLORIDE 98 mEq/L (98-107); CREATININE, serum 0.75 mg/dL (0.57-1.11); GLUCOSE 198 mg/dL (70-99); POTASSIUM 4.7 mEq/L (3.5-4.5); SODIUM 134 mEq/L (136-145); TOTAL PROTEIN 6.6 g/dl (6.2-8.1)
== END ==
LOC: ZCOL.LAB 11:17
PROVIDERS: Internal Medicine
DX: E11.9 Type 2 diabetes mellitus without complications (principal); G20.A1 Parkinson's disease without dyskinesia, without mention of fluctuations; R56.9 Unspecified convulsions